=== PATIENT | male | born 2005 | race Caucasian/White ===

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

== ENCOUNTER → 2024-10-03 18:05 | Outpatient (CLI) | payer OTHER, SELFPAY ==
[2024-10-03 19:06] LABS: Influenza A - CEPHEID Flu A NEGATIVE (NEGATIVE); Influenza B - CEPHEID Flu B NEGATIVE (NEGATIVE); Respiratory Syncytial Virus Negative (Negative)
[2024-10-03 19:09] LABS: COVID-19 CEPHEID 4-PLEX PCR Negative (Negative)
== END ==
PROVIDERS: Family Provider Pediatrics; Visit Provider Physician Assistant
DX: R05.1 Acute cough (principal)
CPT/HCPCS: 0241U